=== PATIENT | female | born 1995 | race African-American/Black ===

== ENCOUNTER 2024-12-07 17:30 | Emergency (ER) | payer BC ==
[~2024-12-07] VITALS: Ht 154.9 cm; Wt 96.2 kg
[2024-12-07 17:51] VITALS: TEMP 97.9
[2024-12-07 18:32] LABS: BASOPHILS % 0.9 % (0.0-1.0); EOSINOPHILS % 1.2 % (0.0-6.0); HEMATOCRIT 38.6 % (34.2-44.1); HEMOGLOBIN 12.6 g/dL (12.0-16.0); LYMPHOCYTES % 30.7 % (18.0-39.1); MEAN CORPUSCULAR HEMOGLOBIN 27.2 pg (28-32); MEAN CORPUSCULAR HGB CONC 32.6 g/dL (31-35); MEAN CORPUSCULAR VOLUME 83.2 fL (81-99); MONOCYTES # (AUTO) 0.4 (0.2-0.8); MONOCYTES % 11.6 % (4.4-11.3); NEUTROPHILS # (AUTO) 1.9 (2.1-6.9); NEUTROPHILS % 55.3 % (38.7-80.0); PLATELET COUNT 194 x10e3/uL (140-360); RED BLOOD COUNT 4.64 x10e6/uL (3.6-5.1); RED CELL DISTRIBUTION WIDTH 11.6 % (11.7-14.4); WHITE BLOOD COUNT 3.36 x10e3/uL (4.8-10.8)
[2024-12-07 18:53] LABS: INR 0.91; PROTHROMBIN TIME 13.1 seconds (11.9-14.5)
[2024-12-07 18:54] LABS: PARTIAL THROMBOPLASTIN TIME 30.9 seconds (23.8-35.5)
[2024-12-07 18:55] LABS: ALBUMIN/GLOBULIN RATIO 1.3 (0.8-2.0); ANION GAP 14.9 mmol/L (8-16); BILIRUBIN,TOTAL 0.7 mg/dL (0.2-1.2); CALCIUM 8.9 mg/dL (8.4-10.2); CREATININE, SERUM 0.86 mg/dL (0.57-1.11); POTASSIUM 3.9 mmol/L (3.5-5.1)
[2024-12-07 19:11] LABS: TROPONIN I < 0.001 ng/mL (0-0.300)
[2024-12-07] MEDS: ONDANSETRON HCL INJ 2MG/ML 2ML 2 MG/ML VIAL IV STA (19:15)
[2024-12-07] MEDS: Morphine 4mg INJECTION 4 MG/ML INJ IV ONE (19:15)
[2024-12-07] MEDS ORDERED: IOPAMIDOL 370 MG/ML 100 ML INFUS..BTL INJ ONE (19:18)
[2024-12-07 19:21] LABS: BILIRUBIN,URINE NEGATIVE (NEGATIVE); CLARITY,URINE HAZY (CLEAR); COLOR,URINE YELLOW (YELLOW); GLUCOSE, URINE NEGATIVE (NEGATIVE); KETONES,URINE TRACE (NEGATIVE); LEUKOCYTE ESTERASE ,URINE NEGATIVE (NEGATIVE); NITRITE,URINE POSITIVE (NEGATIVE); PH,URINE 5.5 (5 - 7); PROTEIN,URINE DIPSTICK >=300 (NEGATIVE); URINE UROBILINOGEN 0.2 mg/dL (0.2 - 1)
[2024-12-07 19:38] LABS: BACTERIA,URINE MANY /HPF; EPITHELIAL CELLS,URINE MODERATE /LPF; TRANSITIONAL EPI CELLS,URINE MANY; WBC,URINE (MAN) 0-5 /HPF (0-5)
[2024-12-07] MEDS: FENTANYL CITRATE/PF 100MCG/2 ML INJ IV ONE (20:20)
[2024-12-07 21:45] VITALS: PULSE 71; RESP 18; O2SAT 98
[2024-12-07] MEDS ORDERED: CEFDINIR300 MG PO (22:30)
[2024-12-07] MEDS ORDERED: ONDANSETRON ODT4 MG SL (22:30)
== END 2024-12-07 22:35 | disposition home or self-care (01) ==
LOC: ER 18:05
DX: R06.02 Shortness of breath (principal); R07.89 Other chest pain; N39.0 Urinary tract infection, site not specified; R10.31 Right lower quadrant pain; I10 Essential (primary) hypertension; I50.9 Heart failure, unspecified
CPT/HCPCS: 36415; 71045; 74177; 80053; 81001; 83880; 84484; 84702; 85025; 85379; 85610; 85730; 93005; 99284; J2270; J2405; J3010; Q9967

== ENCOUNTER 2024-12-28 14:29 | Emergency (ER) | payer BC, OTHER ==
[~2024-12-28 14:29] MED LIST: CEFDINIR300 MG PO; ONDANSETRON ODT4 MG SL
[2024-12-28] MEDS ORDERED: AMOXICILLIN500 MG PO (19:29)
[2024-12-28] MEDS ORDERED: AMLODIPINE BESYL5 MG PO (19:30)
[2024-12-28] MEDS ORDERED: ONDANSETRON ODT4 MG PO (20:57)
[2024-12-28] MEDS ORDERED: PEPCID20 MG PO (20:58)
== END 2024-12-28 14:43 | disposition left against medical advice (07) ==
LOC: ER 14:43
DX: R11.2 Nausea with vomiting, unspecified (principal)

== ENCOUNTER 2024-12-28 14:52 | Emergency (ER) | payer BC, OTHER ==
[~2024-12-28] VITALS: Ht 154.9 cm; Wt 99.4 kg
[2024-12-28] MEDS: SODIUM CHLORIDE 0.9% 1000ML 1,000 ML IV ONE (17:04)
[2024-12-28] MEDS: FAMOTIDINE 20 MG/2 ML VIAL IV STA (17:04)
[2024-12-28] MEDS: ONDANSETRON HCL INJ 2MG/ML 2ML 2 MG/ML VIAL IV STA (17:04)
[2024-12-28] MEDS ORDERED: IOPAMIDOL 370 MG/ML 100 ML INFUS..BTL INJ ONE (17:38)
[2024-12-28] MEDS: Morphine 4mg INJECTION 4 MG/ML INJ IV ONE (18:56)
[2024-12-28] MEDS ORDERED: AMOXICILLIN500 MG PO (19:29)
[2024-12-28] MEDS ORDERED: AMLODIPINE BESYL5 MG PO (19:30)
[2024-12-28 19:31] VITALS: PULSE 75; RESP 18; TEMP 98.1
[2024-12-28] MEDS ORDERED: ONDANSETRON ODT4 MG PO (20:57)
[2024-12-28] MEDS ORDERED: PEPCID20 MG PO (20:58)
[2024-12-28 21:11] VITALS: BP 158/93; PULSE 86; RESP 17; TEMP 98; O2SAT 95
== END 2024-12-28 21:15 | disposition home or self-care (01) ==
LOC: FSED 16:07
DX: M54.2 Cervicalgia (principal); J02.0 Streptococcal pharyngitis; R11.2 Nausea with vomiting, unspecified; R07.89 Other chest pain; I10 Essential (primary) hypertension; I50.9 Heart failure, unspecified
CPT/HCPCS: 70491; 71260; 80053; 81003; 81025; 83518; 85025; 96375; 99284; J0696; J1308; J2270; J2405; J7030; Q9967

== ENCOUNTER 2025-04-06 00:10 | Emergency (ER) | payer BC, MEDICARE ==
[~2025-04-06] VITALS: Ht 154.9 cm; Wt 99.3 kg
[~2025-04-06 00:10] MED LIST changes: +AMLODIPINE BESYL5 MG PO; +AMOXICILLIN500 MG PO; +ONDANSETRON ODT4 MG PO; +PEPCID20 MG PO
[2025-04-06 00:16] VITALS: PULSE 81; RESP 16; TEMP 98.6
[2025-04-06] MEDS ORDERED: ASPIRIN 81 MG CHEW TAB PO ONE (00:30)
[2025-04-06 00:51] LABS: BASOPHILS % 0.7 % (0.0-1.0); EOSINOPHILS % 1.4 % (0.0-6.0); LYMPHOCYTES % 28.1 % (18.0-39.1); MONOCYTES % 12.1 % (4.4-11.3); NEUTROPHILS % 57.5 % (38.7-80.0); RED CELL DISTRIBUTION WIDTH 11.5 % (11.7-14.4)
[2025-04-06] MEDS: NITROGLYCERIN 2% OINT 1 GM PKT TOP ONE (01:04)
[2025-04-06] MEDS: ONDANSETRON HCL INJ 2MG/ML 2ML 2 MG/ML VIAL IV STA (01:04)
[2025-04-06 01:10] LABS: EST GLOMERULAR FILTRATION RATE 96.0 ML/MIN (>=60)
[2025-04-06 01:12] LABS: CORONAVIRUS COVID-19 AG NEGATIVE (NEGATIVE); STREPTOCOCCUS GRP A ANTIGEN NEGATIVE (NEGATIVE)
[2025-04-06 02:06] VITALS: BP 147/104; PULSE 68; RESP 17; TEMP 98.2; O2SAT 99
[2025-04-06 02:22] LABS: AMPHETAMINES SCREEN,URINE NEGATIVE (NEGATIVE); CANNABINOIDS SCREEN,URINE NEGATIVE (NEGATIVE); COCAINE SCREEN,URINE NEGATIVE (NEGATIVE); METHADONE SCREEN, URINE NEGATIVE (NEGATIVE); OPIATES SCREEN,URINE NEGATIVE (NEGATIVE); PREGNANCY TEST, URINE NEGATIVE (NEGATIVE)
== END 2025-04-06 02:10 | disposition home or self-care (01) ==
LOC: ER 00:25
DX: R06.02 Shortness of breath (principal); R07.89 Other chest pain; I10 Essential (primary) hypertension; I50.9 Heart failure, unspecified; Z11.52 Encounter for screening for COVID-19; R94.31 Abnormal electrocardiogram [ECG] [EKG]; Z86.718 Personal history of other venous thrombosis and embolism
CPT/HCPCS: 36415; 71045; 80053; 80307; 81025; 82550; 83518; 83690; 83880; 84484; 85025; 87070; 87428; 93005; 99284; J2405